=== PATIENT | male | born 1945 | race Caucasian/White ===

== ENCOUNTER 2016-08-08 23:57 | Emergency (ER) | payer MEDICARE ==
[~2016-08-08] VITALS: Ht 182.9 cm; Wt 146.0 kg
[2016-08-09 00:05] VITALS: BP 169/96; PULSE 74; RESP 20; TEMP 98; O2SAT 95
[2016-08-09] MEDS ORDERED: VERA40TA PO (00:25)
[2016-08-09] MEDS ORDERED: ASPI1TAB69 PO (00:25)
[2016-08-09] MEDS ORDERED: ENAL2.5T PO (00:25)
[2016-08-09] MEDS ORDERED: PLAV75TA29 PO (00:25)
[2016-08-09] MEDS ORDERED: COQ130CA (00:25)
[2016-08-09 00:26] VITALS: BP 154/96; PULSE 77; RESP 18; TEMP 98; O2SAT 98
[2016-08-09] MEDS ORDERED: MORPHINE SULFATE 4 MG/ML INJ IV PUSH ONE (00:30)
[2016-08-09] MEDS ORDERED: LORazepam 2 MG/ML VIAL IV PUSH ONE (00:30)
[2016-08-09] MEDS ORDERED: COUM4TAB PO (00:36)
[2016-08-09] MEDS ORDERED: OMEP20TA PO (00:36)
--- NOTE | 2016-08-09 00:41 | PD ---
HPI . Anterior neck pain Chief Complaint: Pain: Acute or Chronic Time Seen by Provider: 00:25 Travel History International Travel<30 days: No Contact w/Intl Traveler<30days: No Traveled to known affect area: No History of Present Illness HPI Patient presents with a 2 day history of a pulsating pain in his right anterior neck. He states that the pain is preventing him from sleeping. He states that it has grown progressively worse. It is exacerbated by laying down. Patient reports that he is very concerned because he has had previous PE and cardiovascular disease. [id number]: Right anterior neck QUALITY: Pulsating SEVERITY: 6 of 10 DURATION: 2 days TIMING: Continuous and gradually worsening PFSH Past Medical History Hx Anticoagulant Therapy: Yes Cardiovascular Problems: Yes Social History Tobacco Use: No Allergies-Medications (Allergen,Severity, Reaction): Coded Allergies: No Known Allergies (Unverified , 08/09/16) Reported Meds & Prescriptions Reported Meds & Active Scripts Active Ultram (Tramadol HCl) 50 Mg Tab 50 Mg PO Q4H PRN Reported Coumadin (Warfarin) 4 Mg Tab 4 Mg PO EVERY OTHER DAY Omeprazole 20 Mg Tab 20 Mg PO DAILY Coq10 (Coenzyme Q10 (Ubidecarenone)) 30 Mg Cap Aspirin 81 Mg Tabdr 81 Mg PO DAILY Plavix (Clopidogrel Bisulfate) 75 Mg Tab 75 Mg PO DAILY Verapamil (Verapamil HCl) 40 Mg Tab 120 Mg PO DAILY Enalapril (Enalapril Maleate) 2.5 Mg Tab 20 Mg PO DAILY Review of Systems Except as stated in HPI: all other systems reviewed are Neg General / Constitutional: No: Fever, Chills Cardiovascular: Positive: Other (pulsation in his right anterior neck), No: Chest Pain or Discomfort Respiratory: No: Shortness of Breath Physical Exam Narrative GENERAL: Awake and alert and in no acute distress. SKIN: Warm and dry. NECK: Point tender anterior to the right sternocleidomastoid muscle. There is a palpable lymph node but his tenderness is inferior to the lymph node. CARDIOVASCULAR: Regular rate and rhythm. RESPIRATORY: No accessory muscle use. MUSCULOSKELETAL: No obvious deformities. No edema. NEUROLOGICAL: Awake and alert. No obvious cranial nerve deficits. Motor grossly within normal limits. Normal speech. PSYCHIATRIC: Appropriate mood and affect; insight and judgment normal. Data Data Last Documented VS Vital Signs Date Time Temp Pulse Resp B/P Pulse Ox O2 Delivery O2 Flow Rate FiO2 08/09/16 01:49 76 18 162/89 96 Room Air 08/09/16 00:[address] Soft Tiss Neck W Iv Cont (08/09/16 ) Basic Metabolic Panel (Bmp) (08/09/16 00:25) ^ Saline Lock (08/09/16 00:25) Morphine Inj (Morphine Inj) (08/09/16 00:30) Lorazepam Inj (Ativan Inj) (08/09/16 00:30) Iohexol 350 Inj (Omnipaque 350 Inj) (08/09/16 01:46) Labs Laboratory Tests Test 08/09/16 00:58 Sodium Level 142 MEQ/L Potassium Level 3.7 MEQ/L Chloride Level 106 MEQ/L Carbon Dioxide Level 26.4 MEQ/L Anion Gap 10 MEQ/L Blood Urea Nitrogen 18 MG/DL Creatinine 0.88 MG/DL Estimat Glomerular Filtration 86 ML/MIN Rate Random Glucose 128 MG/DL Calcium Level 8.7 MG/DL MDM Medical Decision Making Medical Screen Exam Complete: Yes Emergency Medical Condition: Yes Differential Diagnosis Differential diagnosis includes musculoskeletal pain, lymphadenitis Narrative Course Patient presents for evaluation of right anterior neck pain in the area of his right carotid artery. He is very concerned about a vascular problem. CT CONCLUSION: 1. Degenerative findings of the cervical spine. 2. Soft tissue neck CT otherwise within normal limits. Diagnosis Primary Impression: Neck pain on right side Patient Instructions: Acute Neck Pain (ED), General Instructions, Narcotic given in the ED Med/Other Pt SpecificInfo: Prescription(s) given Scripts Tramadol (Ultram)50 Mg Tab50 Mg PO Q4H PRN (PAIN) #12 TAB Ref 0 Prov:Cheryle Pacheco MD 08/09/16 Disposition: 01 DISCHARGE HOME Condition: Stable Cheryle Pacheco MD Aug 09, 2016 00:41
[2016-08-09 01:13] LABS: POTASSIUM 3.7 MEQ/L (3.5-5.1)
[2016-08-09 01:16] LABS: BICARBONATE 26.4 MEQ/L (21.0-32.0)
[2016-08-09] MEDS ORDERED: IOHEXOL 350 MG/ML 10 ML VIAL (for RAD DIAG) IV ONE (01:46)
[2016-08-09 01:49] VITALS: BP 162/89; PULSE 76; RESP 18; O2SAT 96
[2016-08-09] MEDS ORDERED: ULTR50TA5 PO (02:03)
--- NOTE | 2016-08-09 02:03 | RADHPO ---
EXAM DATE/TIME: 08/09/2016 01:32 [facility] COMPARISON: No previous studies available for comparison. INDICATIONS : Right pulsating neck pain for two days. IV CONTRAST: 100 cc Omnipaque 350 (iohexol) IV RADIATION DOSE: 16.43 CTDIvol (mGy) MEDICAL HISTORY : Gastroesophageal reflux disease. Hypertension. Deep venous thrombosis. SURGICAL HISTORY : Coronary artery stent. ENCOUNTER: Initial ACUITY: 2 days PAIN SCALE: 7/10 LOCATION: Right anterior neck TECHNIQUE: Volumetric scanning of the neck was performed. Using automated exposure control and adjustment of th e mA and/or kV according to patient size, radiation dose was kept as low as reasonably achievable to obtain optimal diagnostic quality images. FINDINGS: NASOPHARYNX: The nasopharyngeal airway has a normal configuration. No mucosal thickening or mass is seen. OROPHARYNX: The intrinsic muscles of the tongue are symmetric. The tonsillar pillars are intact. The prevertebr al soft tissues are not thickened. LARYNX: The supraglottic, glottic, and infraglottic structures are intact. PARAPHARYNGEAL: The parapharyngeal space is intact. SALIVARY GLANDS: The parotid and submandibular glands are intact. LYMPH NODES: No enlarged or necrotic-appearing nodes. THYROID: Homogeneous enhancement without evidence of nodule. BONES: Degenerative findings of the cervical spine noted with mild central canal narrowing right greater addison n left at C5-6. OTHER: Right internal carotid artery calcification noted. The carotid arteries are widely patent and grossly within normal limits in diameter. Vertebral arteries are patent bilaterally. Internal jugular veins are patent bilaterally. CONCLUSION: 1. Degenerative findings of the cervical spine. 2. Soft tissue neck CT otherwise within normal limits. Faraz Triplett MD on August 09, 2016 at 1:52 Board Certified Radiologist. This report was verified electronically.
== END 2016-08-09 02:38 | disposition home or self-care (01) ==
LOC: PHED 23:57
DX: M54.2 Cervicalgia (principal); Z86.711 Personal history of pulmonary embolism; I25.10 Atherosclerotic heart disease of native coronary artery without angina pectoris; Z79.01 Long term (current) use of anticoagulants
CPT/HCPCS: 70491; 80048; 96374; 99284; J2060; Q9967

== ENCOUNTER 2017-07-28 12:01 | Emergency (ER) | payer MEDICARE ==
[~2017-07-28] VITALS: Ht 185.4 cm; Wt 147.0 kg
[~2017-07-28 12:01] MED LIST: ASPI1TAB69 PO; COQ130CA; COUM4TAB PO; ENAL2.5T PO; OMEP20TA93 PO; PLAV75TA29 PO; TRAM50 PO; VERA40TA PO
[2017-07-28 12:04] VITALS: BP 150/76; PULSE 67; RESP 18; TEMP 98.7; O2SAT 94
[2017-07-28] MEDS ORDERED: ZIAC2.5T PO (12:38)
[2017-07-28] MEDS ORDERED: ATOR40TA16 PO (12:38)
[2017-07-28] MEDS ORDERED: FLUT1SPR5 EACH NARE (12:38)
[2017-07-28] MEDS ORDERED: ENAL20TA PO (12:38)
[2017-07-28] MEDS ORDERED: NITR1SUB3 SL (12:38)
[2017-07-28] MEDS ORDERED: OMEP40CA2 (12:38)
--- NOTE | 2017-07-28 12:42 | PD ---
HPI Chief Complaint: Cold / Flu Symptoms Time Seen by Provider: 12:13 Travel History International Travel<30 days: No Contact w/Intl Traveler<30days: No Traveled to known affect area: No History of Present Illness HPI This is a 72-year-old male who presents for cough and congestion. He states that on July 21, he developed nasal congestion, mildly sore throat and cough. He was seen in urgent care facility and told to take [id number] cough and cold medication. He has been doing this without relief. He now has a more significant cough. No chest pain, difficulty breathing, lower extremity edema. No fever, chills. He states that the sore throat is improving. No difficulty speaking or swallowing. No rash, headache, neck pain or stiffness. Symptoms are mild in severity. Onset gradual. No alleviating or aggravating factors. PFSH Past Medical History Hx Anticoagulant Therapy: Yes (WARFARIN) Atrial Fibrillation: Yes Heart Rhythm Problems: Yes Cardiac Catheterization: Yes Cardiovascular Problems: Yes (stents, HEART DISEASE, HTN, SVT WITH ABLATION) Coronary Artery Disease: Yes Diminished Hearing: No Deep Vein Thrombosis: Yes GERD: Yes Hypertension: Yes Respiratory: Yes (PE's X 2) Tetanus Vaccination: Unknown Influenza Vaccination: No ?: Not Past Surgical History Cardiac Surgery: Yes (stents) Coronary Stent: Yes Social History Alcohol Use: No Tobacco Use: No Substance Use: No Allergies-Medications (Allergen,Severity, Reaction): Coded Allergies: No Known Allergies (Unverified Adverse Reaction, Unknown, 07/28/17) Reported Meds & Prescriptions Reported Meds & Active Scripts Active Reported Nitroglycerin SL (Nitroglycerin) 0.4 Mg Subl 0.4 Mg SL DIRECTED PRN ONE TABLET UNDER THE TONGUE NEEDED FOR CHEST PAIN, MAY REPEAT EVERY FIVE MINUTES FOR A TOTAL OF 3 DOSES OR CALL 911 IF NO RELIEF Atorvastatin (Atorvastatin Calcium) 40 Mg Tab 40 Mg PO HS Ziac (Bisoprolol-Hydrochlorothiazide) 2.5-6.25 Mg Tab 1 Tab PO DAILY Flonase Nasal [place] (Fluticasone Nasal [place]) 50 Mcg/Act [place] 50 Mcg EACH NARE BID Enalapril (Enalapril Maleate) 20 Mg Tab 20 Mg PO DAILY Omeprazole 40 Mg Cap 40 Mg DAILY Coumadin (Warfarin) 4 Mg Tab 4 Mg PO EVERY OTHER DAY Coq10 (Coenzyme Q10 (Ubidecarenone)) 30 Mg Cap Aspirin 81 Mg Tabdr 81 Mg PO DAILY Review of Systems Except as stated in HPI: all other systems reviewed are Neg Physical Exam Narrative GENERAL: Alert, well nourished, well appearing patient resting on the bed in no acute distress. Vital Signs reviewed SKIN: Focused skin assessment warm/dry. HEAD: Atraumatic. Normocephalic. EYES: Pupils equal and round. No scleral icterus. No injection or drainage. ENT: No nasal bleeding or discharge. Mucous membranes pink and moist. TMs clear bilaterally. No tenderness over the mastoids. Posterior oropharynx with no erythema, edema, exudate. Uvula is midline NECK: Trachea midline. No JVD. Spontaneous, painless full range of motion with no meningismus CARDIOVASCULAR: Regular rate and rhythm. No murmur appreciated. Extremities warm and well perfused with bounding peripheral pulses RESPIRATORY: No accessory muscle use. Clear to auscultation. Breath sounds equal bilaterally. Breathing easily and speaking in full sentences GASTROINTESTINAL: Abdomen soft, non-tender, nondistended. Normal bowel sounds. No rigid, rebound, guarding MUSCULOSKELETAL: No obvious deformities. No clubbing. No cyanosis. No edema. Compartments are soft NEUROLOGICAL: Awake and alert. No obvious cranial nerve deficits. Motor grossly within normal limits. Normal speech. Sensation intact. Normal gait Data Data Last Documented VS Vital Signs Date Time Temp Pulse Resp B/P (MAP) Pulse Ox O2 Delivery O2 Flow Rate FiO2 07/28/17 12:50 97 07/28/17 12:04 98.7 67 18 150/76 (100) Orders Orders Prothrombin Time / Inr (Pt) (07/28/17 12:21) Chest, Pa & Lat (07/28/17 12:21) Group A Rapid Strep Screen (07/28/17 12:21) Strep Culture (Group A) (07/28/17 12:32) Labs Laboratory Tests Test 07/28/17 12:32 Prothrombin Time 18.6 SEC Prothromb Time International Ratio 1.8 RATIO MDM Medical Decision Making Medical Screen Exam Complete: Yes Emergency Medical Condition: Yes Medical Record Reviewed: Yes Interpretation(s) Chest x-ray shows no focal infiltrate. Interstitial fluid noted, possible failure Laboratory Tests Test 07/28/17 12:32 Prothrombin Time 18.6 SEC Prothromb Time International Ratio 1.8 RATIO Date/Time Source Procedure Growth Status 07/28/17 12:32 Throat Group A Streptococcus Screen Pending Received 07/28/17 12:32 Throat Group A Streptococcus Screen ([facility]) - Final Complete Differential Diagnosis Bronchitis, pneumonia, strep pharyngitis, viral pharyngitis Narrative Course Patient appears very well. He is breathing easily with normal oxygen saturations on room air. His oxygen saturation is 97%. Lung sounds are clear. He has no lower extremity edema. He has associated nasal congestion and sore throat. He does not appear no fever, chills. The patient's INR is slightly low at 1.8. Plan for treatment with Tessalon Perles for cough, azithromycin and close outpatient follow-up for close INR measuring. He understands that the azithromycin could alter his INR. Patient understands the importance of close outpatient follow-up. He understands he may require further testing and treatment as an outpatient. He understands strict return indications. He is comfortable with this plan and eager to go home. Diagnosis Primary Impression: Acute bronchitis Qualified Codes: J20.9 - Acute bronchitis, unspecified Referrals: Primary Care Physician 2 days Patient Instructions: Acute Bronchitis (DC), General Instructions Additional Instructions: Take antibiotics as directed. Use Tessalon Perles for cough. Have your INR rechecked in 2-3 days. It was 1.8 today. The antibiotic may increase your INR. Follow-up with primary physician in 2-3 days. Return with worsening symptoms. Med/Other Pt SpecificInfo: Prescription(s) given Scripts Azithromycin (Azithromycin) 250 Mg Tab 250 MG PO DIRECTED for Infection, #6 TAB 0 Refills Take 2 tabs (500 mg) on day 1 then 1 tab daily x 4 days. Prov: Elin Richardson MD 07/28/17 Benzonatate (Tessalon Perles) 100 Mg Cap 100 MG PO TID Y for COUGH, #12 CAP 0 Refills Prov: Elin Richardson MD 07/28/17 Disposition: 01 DISCHARGE HOME Condition: Stable Elin Richardson MD Jul 28, 2017 12:42
--- NOTE | 2017-07-28 12:45 | RADRPT ---
EXAM DATE/TIME: 07/28/2017 12:33 [facility] COMPARISON: No previous studies available for comparison. INDICATIONS : Cough, congestion MEDICAL HISTORY : None. SURGICAL HISTORY : None. ENCOUNTER: Initial ACUITY: 2 weeks PAIN SCORE: 0/10 LOCATION: Bilateral chest FINDINGS: Moderate cardiomegaly with mild interstitial edema without consolidation, pleural effusion or pneumot horax. Mild degenerative changes thoracic spine. CONCLUSION: Mild to moderate congestive failure. No alveolar consolidation Malcolm Valadez MD FACR on July 28, 2017 at 12:43 Board Certified Radiologist. This report was verified electronically.
[2017-07-28 12:50] VITALS: O2SAT 97
[2017-07-28 12:55] LABS: INTERNATIONAL NORMALIZED RATIO 1.8 RATIO; PROTHROMBIN TIME - PATIENT 18.6 SEC (9.8-11.6)
[2017-07-28] MEDS ORDERED: AZIT250T3 PO (13:06)
[2017-07-28] MEDS ORDERED: BENZ100 PO (13:06)
== END 2017-07-28 13:18 | disposition home or self-care (01) ==
LOC: PHED 12:01
DX: J20.9 Acute bronchitis, unspecified (principal); I48.91 Unspecified atrial fibrillation; I10 Essential (primary) hypertension; I25.10 Atherosclerotic heart disease of native coronary artery without angina pectoris; K21.9 Gastro-esophageal reflux disease without esophagitis; Z95.5 Presence of coronary angioplasty implant and graft; Z86.718 Personal history of other venous thrombosis and embolism
CPT/HCPCS: 71046; 85610; 87081; 87880; 99284